=== PATIENT | male | born 1990 | race Hispanic/Latino ===

== ENCOUNTER 2024-06-11 13:07 | Emergency (ER) | payer SELFPAY ==
[2024-06-11] MEDS ORDERED: Lidocaine 1% w/Epinephrine 1:100K 20 ML VIAL ONE (13:12)
[2024-06-11] MEDS ORDERED: Boostrix 0.5 ML (Tdap) VIAL (>/=7 yrs of age) ONE (13:28)
== END 2024-06-11 19:52 | disposition home or self-care (01) ==
LOC: BURERS 13:07
DX: S05.32XA Ocular laceration without prolapse or loss of intraocular tissue, left eye, initial encounter (principal); S01.412A Laceration without foreign body of left cheek and temporomandibular area, initial encounter; Z23 Encounter for immunization; W25.XXXA Contact with sharp glass, initial encounter
CPT/HCPCS: 12052; 70486; 90471; 90715

== ENCOUNTER 2024-06-22 13:17 | Emergency (ER) | payer SELFPAY ==
[2024-06-22] MEDS ORDERED: Lidocaine 1%/Epinephrine 1:100K 10 ML VIAL ONE (14:14)
== END 2024-06-22 16:04 | disposition home or self-care (01) ==
LOC: BURERS 13:17
DX: S01.81XD Laceration without foreign body of other part of head, subsequent encounter (principal)
CPT/HCPCS: 99283

== ENCOUNTER 2024-06-26 12:15 | Emergency (ER) | payer SELFPAY | END 2024-06-26 12:39 | disposition home or self-care (01) | LOC: BURERS 12:15 | DX: Z48.00 Encounter for change or removal of nonsurgical wound dressing (principal) | CPT/HCPCS: 99282 ==